=== PATIENT | female | born 1980 | race Caucasian/White ===

== ENCOUNTER 2017-03-23 08:14 | Emergency (ER) | payer OTHER ==
[2017-03-23 08:20] VITALS: BP 123/72
--- NOTE | 2017-03-23 08:43 | UC ---
Throat Pain/Nasal Dereck HPI - HPI Summary HPI Summary: 36 yo female with sore throat and fever x 1 day no n/v/d - History of Current Complaint Chief Complaint: UCRespiratory Stated Complaint: FEVER Time Seen by Provider: 03/23/17 08:23 Hx Obtained From: Patient Hx Last Menstrual Period: 02/24/17 Onset/Duration: Gradual Onset, Lasting Hours Severity: Moderate Pain Intensity: 6 Pain Scale Used: 0-10 Numeric - Epiglottits Risk Factors Epiglottis Risk Factors: Negative - Allergies/Home Medications Allergies/Adverse Reactions: Allergies Allergy/AdvReac Type Severity Reaction Status Date / Time Codeine Allergy Hallucinati Verified 03/23/17 08:20 ons Home Medications: Home Medications Acetaminophen [Acetaminophen Extra Stren] 500 mg PO ONCE 03/23/17 [History Confirmed 03/23/17] PMH/Surg Hx/FS Hx/Imm Hx Previously Healthy: Yes - Surgical History Surgical History: Yes Surgery Procedure, Year, and Place: [facility] - Family History Known Family History: Positive: Hypertension - Social History Alcohol Use: None Substance Use Type: None Smoking Status (MU): Never Smoked Tobacco Review of Systems Constitutional: Fever, Chills Skin: Negative Eyes: Negative ENT: Sore Throat Respiratory: Negative Cardiovascular: Negative Gastrointestinal: Negative Genitourinary: Negative Motor: Negative Neurovascular: Negative Musculoskeletal: Myalgia Neurological: Negative Psychological: Negative Is Patient Immunocompromised?: No All Other Systems Reviewed And Are Negative: Yes Physical Exam Triage Information Reviewed: Yes Appearance: Well-Appearing, No Pain Distress, Well-Nourished Vital Signs: Initial Vital Signs Temp 99.8 F 03/23/17 08:16 Pulse 111 03/23/17 08:16 Resp 18 03/23/17 08:16 BP 123/72 03/23/17 08:16 Pulse Ox 98 03/23/17 08:16 Vital Signs Reviewed: Yes Eyes: Positive: Conjunctiva Clear ENT: Positive: Hearing grossly normal, Pharyngeal erythema Neck: Positive: Supple, Enlarged Nodes @ - ant cervical Respiratory: Positive: Lungs clear, Normal breath sounds, No respiratory distress Cardiovascular: Positive: RRR, No Murmur Musculoskeletal: Positive: ROM Intact, No Edema Neurological: Positive: Alert Psychological Exam: Normal Skin Exam: Normal Diagnostics - Laboratory Diagnostic Studies Completed/Ordered: strep (+) Throat Pain/Nasal Course/Dx - Differential Dx/Diagnosis Provider Diagnoses: strep throat Discharge - Discharge Plan Condition: Stable Disposition: HOME Prescriptions: Amoxicillin PO (*) [Amoxicillin 875 MG (*)] 875 mg PO BID #20 tab Prednisone 60 mg PO DAILY #6 tab Patient Education Materials: Strep Throat (ED) Referrals: Audelia Wei MD [Primary Care Provider] - Additional Instructions: rest fluids tylenol recheck in 2-3 days if not better recheck sooner for worsening symptoms
[2017-03-23] MEDS ORDERED: predniSONE TAB* 20 MG PO ONE (08:44)
== END 2017-03-23 08:52 | disposition home or self-care (01) ==
LOC: UCCORT 08:14
DX: J02.0 Streptococcal pharyngitis (principal); Z88.5 Allergy status to narcotic agent; Z90.49 Acquired absence of other specified parts of digestive tract
CPT/HCPCS: 87651; 99202; G0463; J7512

== ENCOUNTER 2018-12-08 09:25 | Emergency (ER) | payer OTHER ==
--- OUTSIDE RECORDS SUMMARY | 2018-12-08 10:50 | XMS REPORT | Continuity of Care Document ---
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 Care Team Information Kitchen Manager [phone] Practitioner Problems Active Problems Provider Date Single major depressive episode Samantha Colin FNP Onset: 01/19/2012 Acquired hallux valgus Porfirio Reyes FNP Onset: 11/16/2018 Cyst of left ovary Porfirio Reyes FNP Onset: 11/16/2018 Abnormal glucose level Porfirio Reyes FNP Onset: 11/16/2018 Social History Type Date Description Comments Sex Unknown Smokeless Tobacco Never Used Smokeless Tobacco ETOH Use Rarely consumes alcohol Tobacco Use Start: Unknown End: Patient is a former 5 cigs/ day Quit Unknown smoker 2013 Recreational Drug Use Denies Drug Use Smoking Status Reviewed: 12/05/18 Patient is a former 5 cigs/ day Quit smoker 2014 Allergies, Adverse Reactions, Alerts Active Allergies Reaction Severity Comments Date Codeine 01/19/2012 Medications Active Medications SIG Qnty Indications Ordering Date Provider Amitriptyline HCL 1 by mouth every 30tabs R42 Eric, 12/01/2018 25mg night at bedtime Jenshantell, Tablets *in place of 10 mg [employer] tablets, for sleep and headache prevention Lorazepam 1 tablet by mouth 21tabs F43.0 Eric, 12/01/2018 1mg Tablets up to three times Jenkaitlinferleigh, a day for anxiety [employer] MDD#3 Reference #: [id number] Meclizine HCL take one tablet by 60tabs R42 Eric, 05/11/2018 25mg mouth four times a Jenniferleigh, Tablets day as needed for [employer] vertigo Lactaid Fast Act 1 tab by mouth 90tabs R19.7 Bessie, 11/23/2017 three times a day MD Hood 9000Unit Tablets with meals Loestrin 20 (21) 1 tab by mouth 105tabs Z30.011 Eric, 11/09/2017 every daily Jenniferleigh, 1-20mg-mcg Tablets [employer] Loperamide HCL take one capsules 120tabs [facility]19.7 [facility] 11/09/2017 2mg by mouth with each Jenniferleigh, Tablets meal MDD#4 *for [employer] diarrhea History Medications Metronidazole one by mouth 14tabs Porfirio Reyes, 11/23/2018 - 500mg Tablets twice a day x [employer] 12/01/2018 7 days Cephalexin Every 12 14tabs Unknown 10/12/2018 - 500mg Tablets Hours 11/16/2018 Phenazopyridine HCL 3 Times Daily 12tabs Unknown 10/12/2018 - 100mg 11/16/2018 Tablets Cephalexin Every 12 14caps Unknown 08/01/2018 - 500mg Capsules Hours 09/12/2018 Immunizations CPT Code Status Date Vaccine Lot # [id number] Given 09/11/2016 Tdap injection [id number] Vital Signs Date Vital Result Comment 12/05/2018 1:53pm BP Systolic Sitting Left Arm 115 mmHg BP Diastolic Sitting Left Arm 80 mmHg Heart Rate 80 /min Respiratory Rate 16 /min Height 60 inches 5'0" Weight 187.00 lb BMI (Body Mass Index) 36.5 kg/m2 BSA (Body Surface Area) 1.81 m2 [place] body weight in kilograms 45 kg 12/01/2018 11:21am BP Systolic Sitting Left Arm 130 mmHg BP Diastolic Sitting Left Arm 90 mmHg Body Temperature 97.8 F Heart Rate 100 /min Respiratory Rate 18 /min Height 60 inches 5'0" Weight 188.00 lb BMI (Body Mass Index) 36.7 kg/m2 BSA (Body Surface Area) 1.82 m2 [place] body weight in kilograms 45 kg Results Test Date Facility Test Result H/L Range Note Affirm 11/16/[address] [facility] [address] Trichomonas Negative [Negative] 1 Vaginitis Panel [address] vaginalis [place], [place] [id number] [phone] Gardnerella vaginalis POSITIVE Abnormal [Negative] Ambreen species Negative [Negative] 2 Urine Culture 11/16/[address] [facility] [address] Urine Culture URETHRAL GAMAL [address] [place] [address] [phone] Quantity < 10,000 CFU/mL Ua RFX Micro & Culture 11/16/[address] Urine Color YELLOW Yellow II [address] [place] [address] [phone] Urine Clarity CLEAR Clear Urine Glucose - Dipstick NEGATIVE mg/dL Negative Urine Bilirubin - Dipstick NEGATIVE Negative Urine Ketone NEGATIVE mg/dL Negative Urine Specific [facility] 1.025 Normal 1.010-1.030 Urine Blood MODERATE Abnormal Negative Urine PH 5.5 Low 6.5-7.5 Urine Protein - Dipstick NEGATIVE mg/dL Negative Urine Urobilinogen - Dipstick 0.2 E.U./dL Normal 0.2-1.0 Urine Nitrite - Dipstick NEGATIVE Negative Urine Leuk Esterase NEGATIVE Negative Urine RBC 2-5 rbc/hpf 0-2 Urine WBC 0-2 wbc/hpf 0-7 Urine Epithelial Cells MODERATE /lpf None Seen 3 Urine Bacteria VERY FEW None Seen Urine Mucus MODERATE None Seen Comprehensive 11/16/[address] Glucose 85 mg/dL Normal 74-106 Metabolic Panel [address] [place] [address] [phone] BUN 11 mg/dL Normal 7-18 Creatinine 0.7 mg/dL Normal 0.6-1.3 Glom Filtration Rate, Estimate >60 mL/min >60 If >60 mL/min >60 4 BUN/Creat 15.7 ratio Sodium 138 mmol/L Normal 136-145 Potassium 4.2 mmol/L Normal 3.5-5.1 Chloride 105 mmol/L Normal 98-107 Carbon Dioxide 24 mmol/L Normal 21-32 Anion Gap 9 mEq/L Normal 8-16 Calcium 8.8 mg/dL Normal 8.5-10.1 Total Protein 7.8 g/dL Normal 6.4-8.2 Albumin 3.3 g/dL Low 3.4-5.0 Globulin 4.5 g/dL High 1.9-4.3 Alb/Glob 0.7 ratio Bilirubin,Total 0.3 mg/dL Normal 0.2-1.0 Sgot/Ast 17 U/L Normal 15-37 SGPT/Alt 29 U/L Normal 12-78 Alkaline Phosphatase 52 U/L Normal 45-117 Glycohemoglobin 11/16/[address] [facility] [address] Glycohemoglobin 5.7 % Normal 4.2-6.[address] (A1c) [place], [place] [id number] [phone] eAG 117 mg/dL Urine HCG 10/12/2018 [facility] Urine HCG NEGATIVE Negative 6, 7 (Qualitative) [address] (Qualitative) [place], [place] [id number] [phone] Source: URINE, CLEAN CAT <SEE NOTE> 8 Ua RFX Micro & Culture II 10/12/2018 [facility] Urine Color RED Yellow [address] [place] [address] [phone] Urine Clarity TURBID Clear Urine Glucose - Dipstick 100 mg/dL High Negative Urine Bilirubin - Dipstick NEGATIVE Negative Urine Ketone 15 mg/dL High Negative Urine Specific [facility] 1.025 Normal 1.010-1.030 Urine Blood LARGE Abnormal Negative Urine PH 6.5 Normal 6.5-7.5 Urine Protein - Dipstick >=300 mg/dL High Negative Urine Urobilinogen - Dipstick 2.0 E.U./dL High 0.2-1.0 Urine Nitrite - Dipstick POSITIVE Abnormal Negative Urine Leuk Esterase MODERATE Abnormal Negative Urine RBC TNTC rbc/hpf High 0-2 Urine WBC 30-50 wbc/hpf High 0-7 Urine Epithelial Cells FEW /lpf None Seen Urine Bacteria VERY FEW None Seen Source: URINE, CLEAN CAT <SEE NOTE> 9 Culture If 10/12/2018 [facility] Culture If CULTURE TO [address] Indicated Comment [address] Indicated Comment FOLLO <[place] [address] NOTE> [phone] Source: URINE, CLEAN CAT <SEE NOTE> 11 Urine Culture 10/12/2018 [facility] Urine ESCHERICHIA COLI Abnormal [address] Culture [place], [place] [id number] [phone] Quantity > 100,000 CFU/mL 13 Ast-GN67 10/12/2018 [facility] Nitrofurantoin [address] [place] [address] [phone] Trimethoprim/Sulfamethoxazole <=20 Susceptible Ampicillin 8 Susceptible Cefazolin <=4 Susceptible Ampicillin/Sulbactam 4 Susceptible Ciprofloxacin <=0.25 Susceptible Piperacillin/Tazobactam <=4 Susceptible Ceftazidime <=1 Susceptible Ceftriaxone <=1 Susceptible Cefepime <=1 Susceptible Levofloxacin <=0.12 Susceptible Imipenem <=0.25 Susceptible Gentamicin <=1 Susceptible Tobramycin <=1 Susceptible Urine Dipstick 09/12/2018 [facility] Ua Leuko - Negative Ua Nitrite - Negative Ua Urobilinogen .2 0.2 - 1.0 E.U./dL Ua Protein trace Negative Ua PH 6 Low 6.5-7.5 Ua Blood 1+ High Negative Ua Specific [facility] 1.030 1.010-1.030 Ua Ketones - Negative Ua Bilirubin - Negative Ua Glucose - Negative Laboratory test 08/01/2018 [facility] Urine HCG NEGATIVE Negative 14, finding [address] (Qualitative) 15 [place] [address] [phone] Amorphous 08/01/2018 N2N/CCD Import Amorphous Moderate Negative sediment sediment detection in detection in urine sediment urine sediment by by light microscopy Mucus detection 08/01/2018 N2N/CCD Import Mucus detection Small None Seen in urine in urine sediment by sediment by light microsc light microscopy Urine sediment 08/01/2018 N2N/CCD Import Urine sediment 0-2 None Seen hyaline cast hyaline cast count by count by microscopy (n microscopy (number/low power field) Bacteria 08/01/2018 N2N/CCD Import Bacteria Moderate High None Seen detection in detection in urine sediment urine sediment by light micr by light microscopy Epithelial 08/01/2018 N2N/CCD Import Epithelial Very Few None Seen cells detection cells detection in urine in urine sediment by li sediment by light microscopy Urine sediment 08/01/2018 N2N/CCD Import Urine sediment 5-10 0-7 leukocyte count leukocyte count by microscopy by microscopy (numb (number/high power field) Automated urine 08/01/2018 N2N/CCD Import Automated urine 5-10 High 0-2 sediment sediment erythrocyte erythrocyte count by micr count by microscopy (number/high power field) Urine leukocyte 08/01/2018 N2N/CCD Import Urine leukocyte Negative Negative esterase esterase detection by detection by automated te automated test strip Urine nitrite 08/01/2018 N2N/CCD Import Urine nitrite Negative Negative detection by detection by automated test automated test strip strip Urine 08/01/2018 N2N/CCD Import Urine 0.2 0.2-1.0 urobilinogen urobilinogen measurement measurement (units/volume) (units/volume) by t by test strip Urine protein 08/01/2018 N2N/CCD Import Urine protein Negative Negative measurement by measurement by automated test automated test strip strip (mass/volume) Urine pH 08/01/2018 N2N/CCD Import Urine pH 5.5 Low 6.5-7.5 measurement by measurement by automated test automated test strip strip Urine 08/01/2018 N2N/CCD Import Urine Moderate High Negative hemoglobin hemoglobin detection by detection by automated test automated test strip strip Specific 08/01/2018 N2N/CCD Import Specific >=1.030 1.010-1.0 gravity of gravity of 30 Urine by Urine by Automated test Automated test strip strip Urine ketones 08/01/2018 N2N/CCD Import Urine ketones Negative Negative measurement by measurement by automated test automated test strip strip (mass/volume) Urine total 08/01/2018 N2N/CCD Import Urine total Negative Negative bilirubin bilirubin detection by detection by automated test automated test strip Urine glucose 08/01/2018 N2N/CCD Import Urine glucose Negative Negative measurement by measurement by automated test automated test strip strip (mass/volume) Urine 08/01/2018 N2N/CCD Import Urine Clear Clear appearance appearance determination determination Urine color 08/01/2018 N2N/CCD Import Urine color Yellow Yellow determination determination Urine Culture 08/01/2018 [facility] Urine Culture URETHRAL [address] [place] [address] [phone] Quantity < 10,000 CFU/mL Ua RFX Micro & Culture 08/01/2018 [facility] Urine Color YELLOW Yellow II [address] [place] [address] [phone] Urine Clarity CLEAR Clear Urine Glucose - Dipstick NEGATIVE mg/dL Negative Urine Bilirubin - Dipstick NEGATIVE Negative Urine Ketone NEGATIVE mg/dL Negative Urine Specific [facility] >=1.030 Normal 1.010-1.030 Urine Blood MODERATE Abnormal Negative Urine PH 5.5 Low 6.5-7.5 Urine Protein - Dipstick NEGATIVE mg/dL Negative Urine Urobilinogen - Dipstick 0.2 E.U./dL Normal 0.2-1.0 Urine Nitrite - Dipstick NEGATIVE Negative Urine Leuk Esterase NEGATIVE Negative Urine RBC 5-10 rbc/hpf High 0-2 Urine WBC 5-10 wbc/hpf 0-7 Urine Epithelial Cells VERY FEW /lpf None Seen Urine Bacteria MODERATE Abnormal None Seen Urine Hyaline Cast 0-2 #/lpf None Seen Urine Mucus SMALL None Seen Urine Amorph Sediment MODERATE Negative Source: URINE, CLEAN CAT <SEE NOTE> 16 1 R35.0 R73.9 2 Method: BD Affirm VPIII DNA Probe Assay 3 POSSIBLE UROGENITAL CONTAMINATION. 4 Note: Persistent reduction for 3 months or more in an eGFR <60 mL/min/1.73 m2 defines CKD. Patients with eGFR values >/=60 mL/min/1.73 m2 may also have CKD if evidence of persistent proteinuria is present. The original MDRD equation for estimated GFR is not valid for patients less than 18 years of age. Additional information may be found at www.kdoqi.org. 5 Elevated levels of HbA1c suggest the need for more aggressive treatment of glycemia. The [place] [employer] recommends that a primary goal of therapy should be a HbA1c of <7% and that physicians should re-evaluate the treatment regimen in patients with HbA1c values consistently >8%. 6 POSS UTI, BLOOD IN URINE, PEES OFTEN 7 FIRST MORNING SPECIMENS GENERALLY CONTAIN THE HIGHEST CONCENTRATION OF HCG AND ARE RECOMMENDED FOR EARLY DETECTION OF . Method: Quidel QuickVue One-Step Immunoassay 8 URINE, CLEAN CATCH 9 URINE, CLEAN CATCH 10 CULTURE TO FOLLOW 11 URINE, CLEAN CATCH 12 ESCHERICHIA COLI 13 > 100,000 CFU/mL 14 LT SIDE LOWER BACK PAIN, ?KIDNEY RELATED 15 FIRST MORNING SPECIMENS GENERALLY CONTAIN THE HIGHEST CONCENTRATION OF HCG AND ARE RECOMMENDED FOR EARLY DETECTION OF . Method: Quidel QuickVue One-Step Immunoassay 16 URINE, CLEAN CATCH Procedures Description No Information Available Medical Devices Description No Information Available Encounters Type Date Location Provider Dx Diagnosis Office Visit 12/05/2018 Family Medicine Eric, F43.0 Acute stress 2:15p Kevin Monroy, reaction [employer] Office Visit 11/16/2018 Family Jeffery Reyes, Z00.01 Encounter for 9:30a Kevin Monroy, general adult [employer] medical exam w abnormal findings M20.12 Hallux valgus (acquired), left foot R35.0 Frequency of micturition N83.292 Other ovarian cyst, left side R73.9 Hyperglycemia, unspecified E66.9 Obesity, unspecified Office Visit 09/12/2018 Family Eric, N83.202 Unspecified 8:45a [facility] [place] ovarian cyst, RD left side Assessments Date Code Description Provider 12/05/2018 F43.0 Acute stress reaction Nina ReyesmariannedivineDEEPA 12/01/2018 F43.0 Acute stress reaction Nina ReyesmariannedivineDEEPA 11/16/2018 Z00.01 Encounter for general adult medical Porfirio Reyes FNP examination with abnormal findings 11/16/2018 M20.12 Hallux valgus (acquired), left foot Eric DEEPA Monroy 11/16/2018 R35.0 Frequency of micturition Sarah ReyesparthdivineDEEPA 11/16/2018 N83.292 Other ovarian cyst, left side Anderschris DEEPA Monroy 11/16/2018 R73.9 Hyperglycemia, unspecified Eric DEEPA Monroy 11/16/2018 E66.9 Obesity, unspecified Nina ReyesmariannedivineDEEPA 09/12/2018 N83.202 Unspecified ovarian cyst, left side Eric DEEPA Monroy Plan of Treatment 12/01/2018 - Nina ReyesmariannedivineDEEPAF43.0 Acute stress reactionNew Medication: Lorazepam 1 mg - 1 tablet by mouth up to three times a day for anxiety MDD#3 Reference #: [id number]:increase Amitriptyline to 25 mg at night (may double up on current dose) If increased dose of amitripyline isn't working, may use Lorazepam an hour before bed. It this isn't effective, would consider switching to Seroquel (Quetiapine) or trazodone Lorazapam for daytime Sx short term only (discussed addiction potential, diversion and daytime drowsiness as concerns). May cut pill in half if you feel too drowsy. Understanding that as you sleep better, you may need it less and we will discuss switchingto either SSRI/SNRI, buspirone or other at follow up visit.Follow up:MOn/Tues recheck anxiety 15 min Functional Status Description No Information Available Mental Status Description No Information Available Referrals Refer to Reason for Referral Status Appt Date Jessica Briceno MD LT sided pelvic pain since early August - Sent Recent MRI shows 4.4 cm left dermoid cyst. [address] [facility] [address] [place] [address] [phone] Mika Weinstein LT foot pain Scheduled 12/05/2018 [address] [place] [address] [phone]
--- OUTSIDE RECORDS SUMMARY | 2018-12-08 10:50 | XMS REPORT | Continuity of Care Document ---
:1980 External Reference #:[id number] Author Name Porfirio Reyes FNP Address [address] [place] [address] Care Team Providers Name Role Phone Porfirio Reyes NP Care Team Information Director Nursing Service Unavailable Porfirio Reyes NP Primary Care Physician Unavailable Payers Date Identification Numbers Payment Provider Subscriber Policy Number: [id number] [employer] Wilma Roldan PayID: [id number] [address] [place] [address] Onset: 2018 Policy Number: [id number] Progressive Wilma Barrerajai PayID: [id number] [address] [place] [address] Problems Active Problems Provider Date Single major depressive episode Samantha Colin FNP Onset: 01/19/2012 Abnormal glucose level Porfirio Reyes FNP Onset: 11/16/2018 Cyst of left ovary Porfirio Reyes FNP Onset: 11/16/2018 Acquired hallux valgus Porfirio Reyes FNP Onset: 11/16/2018 Family History Date Family Member(s) Observation Comments General Diabetes Mellitus Type 2 General Hypercholesterolemia General Hypertension General Non Contributory Father Hypertension Father Diabetes Mother Hypertension Mother Diabetes Paternal Grandfather due to Unknown Causes () Paternal Grandmother Unknown Maternal Grandfather due to Diabetes () - complications; ETOH + smoker Maternal Grandmother Diabetes Maternal Grandmother due to Kidney Disease () Social History Type Date Description Comments Sex Unknown Marital Status Lives With Home Environment Lives With spouse and 2 children Diet Patient follows no dietary restrictions 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 Status Currently Working Smokeless Tobacco Never Used Smokeless Tobacco ETOH Use Rarely consumes alcohol Tobacco Use Start: Unknown End: Patient is a former 5 cigs/ day Quit Unknown smoker 2013 Recreational Drug Use Denies Drug Use Smoking Status Reviewed: 11/16/18 Patient is a former 5 cigs/ day Quit smoker 2013 Allergies, Adverse Reactions, Alerts Active Allergies Reaction Severity Comments Date Codeine 01/19/2012 Medications Active Medications SIG Qnty Indications Ordering Date Provider Amitriptyline HCL 1 tablet 1 hours 30tabs R42 [facility], 05/11/2018 10mg prior to bedtime Jenniferadelina, Tablets [employer] Meclizine HCL take one tablet 60tabs R42 [place], 05/11/2018 25mg by mouth four Jenkaitlinferadelina, Tablets times a day as F[employer] STERIL[employer]ER needed for vertigo Lactaid Fast Act 1 tab by mouth 90tabs R19.7 [place], 11/23/2017 9000Unit three times a MD Tablets day with meals Loestrin 20 (21) 1 tab by mouth 105tabs Z30.011 [place], 11/09/2017 every daily Jenniferadelina, 1-20mg-mcg Tablets [employer]IL[employer] Loperamide HCL take one 120tabs R19.7 [place], 11/09/2017 2mg capsules by Jenshantell, Tablets mouth with each [employer] meal MDD#4 *for diarrhea History Medications Cephalexin Every 12 Hours 14tabs Unknown 10/12/2018 - 500mg Tablets 11/16/2018 Phenazopyridine HCL 3 Times Daily 12tabs Unknown 10/12/2018 - 100mg 11/16/2018 Tablets Cephalexin Every 12 Hours 14caps Unknown 08/01/2018 - 500mg Capsules 09/12/2018 Cervical Collar/Soft use one hour 1units M54.2 [place], 03/14/2018 - Foam/Average/[place] on and one off Jenniferleidivine, 11/16/2018 - do not sleep [employer] STERIL[employer]ER Misc in collar No Active Medications Unknown 11/09/2017 - 11/09/2017 Metronidazole 500 mg by 14tabs Audelia Wei, 09/15/2016 - 500mg Tablets mouth q12 x 7 M.D. 11/09/2017 days Loestrin 05/22 (21) 1 tab by mouth 105tabs Z30.011 Audelia Wei, 03/17/2016 - every daily M.D. 11/09/2017 1-20mg-mcg Tablets Diazepam 1 tab by mouth 1tamarcelina Villagomez, 06/05/2014 - 5mg Tablets prior to MD Nayely 03/17/2016 dental appointment. [facility], 02/28/2013 - 68mg Implant MD Claudia 05/06/2016 Cyclobenzaprine HCL take 1 tablet Unknown - 10mg by mouth every 09/12/2018 Tablets 6 hours if needed for muscle spasm Ibu take 1 tablet Unknown - 600mg Tablets by mouth three 09/12/2018 times a day if needed for pain Immunizations CPT Code Status Date Vaccine Lot # [id number] Given 09/11/2016 Tdap injection [id number] Vital Signs Date Vital Result Comment 11/16/2018 9:21am BP Systolic Sitting Right Arm 120 mmHg BP Diastolic Sitting Right Arm 82 mmHg Heart Rate 84 /min Respiratory Rate 17 /min Height 60 inches 5'0" Weight 190.00 lb BMI (Body Mass Index) 37.1 kg/m2 BSA (Body Surface Area) 1.83 m2 Juda body weight in kilograms 45 kg O2 % BldC Oximetry 98 % 09/12/2018 8:42am BP Systolic Sitting Left Arm 116 mmHg BP Diastolic Sitting Left Arm 74 mmHg Heart Rate 80 /min Respiratory Rate 18 /min Height 60 inches 5'0" Weight 190.00 lb BMI (Body Mass Index) 37.1 kg/m2 BSA (Body Surface Area) 1.83 m2 Juda body weight in kilograms 45 kg 05/25/2018 3:03pm BP Systolic Sitting Left Arm 114 mmHg BP Diastolic Sitting Left Arm 72 mmHg Heart Rate 78 /min Respiratory Rate 18 /min Height 60 inches 5'0" Weight 187.00 lb BMI (Body Mass Index) 36.5 kg/m2 BSA (Body Surface Area) 1.81 m2 Juda body weight in kilograms 45 kg 05/11/2018 7:39am BP Systolic Sitting Left Arm 112 mmHg BP Diastolic Sitting Left Arm 76 mmHg Body Temperature 97.1 F Heart Rate 93 /min Weight 185.12 lb O2 % BldC Oximetry 97 % 03/29/2018 4:02pm BP Systolic 118 mmHg BP Diastolic 80 mmHg Body Temperature 98.6 F R Ear Heart Rate 95 /min Respiratory Rate 98 /min Height 60 inches 5'0" Weight 184.00 lb BMI (Body Mass Index) 35.9 kg/m2 BSA (Body Surface Area) 1.80 m2 Juda body weight in kilograms 45 kg 03/14/2018 2:49pm BP Systolic Sitting Left Arm 110 mmHg BP Diastolic Sitting Left Arm 72 mmHg Heart Rate 80 /min Respiratory Rate 18 /min Height 60 inches 5'0" Weight 184.00 lb BMI (Body Mass Index) 35.9 kg/m2 BSA (Body Surface Area) 1.80 m2 Juda body weight in kilograms 45 kg 11/23/2017 10:19am BP Systolic Sitting Resting Right Arm 120 mmHg BP Diastolic Sitting Resting Right Arm 90 mmHg Heart Rate 70 /min Respiratory Rate 18 /min Height 60 inches 5'0" Weight 184.00 lb BMI (Body Mass Index) 35.9 kg/m2 BSA (Body Surface Area) 1.80 m2 Juda body weight in kilograms 45 kg O2 % BldC Oximetry 98 % 11/09/2017 2:11pm BP Systolic Sitting Left Arm 118 mmHg BP Diastolic Sitting Left Arm 74 mmHg Body Temperature 98.0 F Heart Rate 64 /min Height 60 inches 5'0" Weight 185.25 lb BMI (Body Mass Index) 36.2 kg/m2 BSA (Body Surface Area) 1.81 m2 Juda body weight in kilograms 45 kg Last Menstrual Period [id number] 09/11/2016 8:50am BP Systolic Sitting Left Arm 118 mmHg BP Diastolic Sitting Left Arm 66 mmHg Body Temperature 98.1 F Height 60 inches 5'0" Weight 180.38 lb BMI (Body Mass Index) 35.2 kg/m2 BSA (Body Surface Area) 1.79 m2 Juda body weight in kilograms 45 kg Last Menstrual Period [id number] 03/17/2016 1:40pm BP Systolic Sitting Left Arm 106 mmHg BP Diastolic Sitting Left Arm 70 mmHg Height 60 inches 5'0" Weight 178.50 lb BMI (Body Mass Index) 34.9 kg/m2 BSA (Body Surface Area) 1.78 m2 Juda body weight in kilograms 45 kg 02/22/2014 2:19pm BP Systolic 122 mmHg BP Diastolic 70 mmHg Height 60 inches 5'0" Weight 181.00 lb 11/29/2013 1:00pm BP Systolic 126 mmHg BP Diastolic 74 mmHg Height 60 inches 5'0" Weight 177.00 lb 06/09/2013 11:30am BP Systolic 120 mmHg BP Diastolic 84 mmHg Body Temperature 98.1 F Heart Rate 80 /min Height 60 inches 5'0" Weight 172.00 lb 02/28/2013 10:47am BP Systolic 124 mmHg BP Diastolic 70 mmHg Height 60 inches 5'0" Weight 171.00 lb 01/19/2012 2:10pm BP Systolic 112 mmHg BP Diastolic 86 mmHg Height 60 inches 5'0" Weight 170.00 lb Results Test Date Facility Test Result H/L Range Note Urine HCG 10/12/2018 [facility] Urine HCG NEGATIVE Negative 1, 2 (Qualitative) [address] (Qualitative) [place] [address] [phone] Source: URINE, CLEAN CAT <SEE NOTE> 3 Ua RFX Micro & Culture II 10/12/2018 [facility] Urine Color RED Yellow [address] [place] [address] [phone] Urine Clarity TURBID Clear Urine Glucose - Dipstick 100 mg/dL High Negative Urine Bilirubin - Dipstick NEGATIVE Negative Urine Ketone 15 mg/dL High Negative Urine Specific [place] 1.025 Normal 1.010-1.030 Urine Blood LARGE Abnormal [...] Seen Source: URINE, CLEAN CAT <SEE NOTE> 4 Culture If 10/12/2018 [facility] Culture If CULTURE TO 5 Indicated Comment [address] Indicated Comment FOLLO <[place] [address] NOTE> [phone] Source: URINE, CLEAN CAT <SEE NOTE> 6 Urine Culture 10/12/2018 [facility] Urine Culture ESCHERICHIA COLI Abnormal [address] [place] [address] [phone] Quantity > 100,000 CFU/mL 8 [id number] 10/12/2018 [facility] Nitrofurantoin 32 Susceptible [address] [place] [address] [phone] Trimethoprim/Sulfamethoxazole <=20 Susceptible Ampicillin 8 Susceptible Cefazolin [...] Ua Blood 1+ High Negative Ua Specific [place] 1.030 1.010-1.030 Ua Ketones - Negative Ua Bilirubin - Negative Ua Glucose - Negative Ua RFX Micro & Culture 08/01/2018 [facility] Urine Color YELLOW Yellow 9 II [address] [place] [address] [phone] Urine Clarity CLEAR Clear Urine Glucose - Dipstick NEGATIVE mg/dL Negative Urine Bilirubin - Dipstick NEGATIVE Negative Urine Ketone NEGATIVE mg/dL Negative Urine Specific [place] >=1.030 Normal 1.010-1.030 Urine Blood MODERATE Abnormal [...] Negative Source: URINE, CLEAN CAT <SEE NOTE> 10 Laboratory 08/01/2018 [facility] Urine HCG NEGATIVE Negative 11 test finding [address] [facility] (Qualitative) [place] [address] [phone] Amorphous 08/01/2018 N2N/CCD Import Amorphous Moderate Negative sediment sediment detection in detection in urine urine sediment sediment by by light microscopy Mucus 08/01/2018 N2N/CCD Import Mucus detection Small None Seen detection in in urine urine sediment by sediment by light microscopy light microsc Urine 08/01/2018 N2N/CCD Import Urine sediment 0-2 None Seen sediment hyaline cast hyaline cast count by count by microscopy microscopy (n (number/low power field) Bacteria 08/01/2018 N2N/CCD Import Bacteria Moderate High None Seen detection in detection in urine urine sediment sediment by by light light micr microscopy Urine Culture 08/01/2018 [facility] Urine Culture URETHRAL [address] [place] [address] [phone] Quantity < 10,000 CFU/mL Urine color 08/01/2018 N2N/CCD Import Urine color Yellow Yellow determination determination Urine appearance 08/01/2018 N2N/CCD Import Urine appearance Clear Clear determination determination Urine glucose 08/01/2018 N2N/CCD Import Urine glucose Negative Negative measurement by measurement by automated test automated test strip strip (mass/volume) Urine total 08/01/2018 N2N/CCD Import Urine total Negative Negative bilirubin bilirubin detection by detection by automated test automated test strip Urine ketones 08/01/2018 N2N/CCD Import Urine ketones Negative Negative measurement by measurement by automated test automated test strip strip (mass/volume) Specific gravity 08/01/2018 N2N/CCD Import Specific gravity >=1.030 1.010-1.030 of Urine by of Urine by Automated test Automated test strip strip Urine hemoglobin 08/01/2018 N2N/CCD Import Urine hemoglobin Moderate High Negative detection by detection by automated test automated test strip strip Urine pH 08/01/2018 N2N/CCD Import Urine pH 5.5 Low 6.5-7.5 measurement by measurement by automated test automated test strip strip Urine protein 08/01/2018 N2N/CCD Import Urine protein Negative Negative measurement by measurement by automated test automated test strip strip (mass/volume) Epithelial cells 08/01/2018 N2N/CCD Import Epithelial cells Very Few None Seen detection in detection in urine sediment by urine sediment li by light microscopy Urine sediment 08/01/2018 N2N/CCD Import Urine sediment 5-10 0-7 leukocyte count leukocyte count by microscopy by microscopy (numb (number/high power field) Automated urine 08/01/2018 N2N/CCD Import Automated urine 5-10 High 0-2 sediment sediment erythrocyte count erythrocyte by micr count by microscopy (number/high power field) Urine leukocyte 08/01/2018 N2N/CCD Import Urine leukocyte Negative Negative esterase esterase detection by detection by automated te automated test strip Urine nitrite 08/01/2018 N2N/CCD Import Urine nitrite Negative Negative detection by detection by automated test automated test strip strip Urine 08/01/2018 N2N/CCD Import Urine 0.2 0.2-1.0 urobilinogen urobilinogen measurement measurement (units/volume) by (units/volume) t by test strip Comprehensive 11/23/2017 [facility] Glucose 87 mg/dL Normal 74-106 12 Metabolic Panel [address] [place] [address] [phone] BUN 11 mg/dL Normal 7-18 Creatinine 0.8 mg/dL Normal 0.6-1.3 Glom Filtration Rate, Estimate >60 mL/min >60 If >60 mL/min >60 13 BUN/Creat 13.7 ratio Sodium 139 mmol/L Normal 136-145 Potassium 4.1 mmol/L Normal 3.5-5.1 Chloride 108 mmol/L High 98-107 Carbon Dioxide 23 mmol/L Normal 21-32 Anion Gap 8 mEq/L Normal 8-16 Calcium 8.9 mg/dL Normal 8.5-10.1 Total Protein 8.5 g/dL High 6.4-8.2 Albumin 3.8 g/dL Normal 3.4-5.0 Globulin 4.7 g/dL High 1.9-4.3 Alb/Glob 0.8 ratio Bilirubin,Total 0.4 mg/dL Normal 0.2-1.0 Sgot/Ast 27 U/L Normal 15-37 SGPT/Alt 56 U/L Normal 12-78 Alkaline Phosphatase 57 U/L Normal 45-117 CBS W/Automated 11/23/2017 [facility] White Blood 6.5 K/uL Normal 3.1-10.[address] [place] [address] [phone] Red Blood Count 5.15 M/uL Normal 3.90-5.40 Hemoglobin 14.0 gm/dL Normal 11.6-15.8 Hematocrit 41.1 % Normal 36.0-46.1 Mean Cell Volume 79.8 fl Low 80.9-99.0 Mean Corpuscular HGB 27.2 pg Normal 25.9-32.7 Mean Corpuscular HGB Conc 34.1 g/dL Normal 30.8-34.3 Platelet Count 349 K/uL Normal 155-360 Red Cell Distri Width SD 38.9 fl Normal 3-47 Red Cell Distri Width %CV 13.7 % Normal 11.7-14.4 Mean Platelet Volume 8.9 fL Normal 8.9-12.4 Neut% 64.3 % Normal 40.4-72.8 Lymph % 26.9 % Normal 20.0-42.0 Pickett % 6.3 % Normal 4.3-13.2 Eo% 2.0 % Normal 0.0-6.6 Bas% 0.5 % Normal 0.0-1.1 Neut# 4.18 K/uL Normal 1.8-7.0 Lymph # 1.75 K/uL Normal 1.0-4.0 [place]ett # 0.41 K/uL Normal 0.3-0.9 Eos # 0.13 K/uL Normal 0.0-0.5 Baso # 0.03 K/uL Normal 0.0-0.1 Laboratory test finding 11/23/2017 [facility] Lipase 110 U/L Normal 56-289 [address] [place], [place] [address] [phone] Amylase 60 U/L Normal 25-115 Laboratory test 11/23/2017 [facility] Sedimentation Rate 48 mm/hr High 0-20 14 finding [address] [place], [place] [id number] [phone] C-Reactive Protein,Quant 8.0 mg/L High <3.0 Laboratory test 11/09/2017 [facility] Inhouse Urine Test neg finding Urine Dipstick 11/09/2017 [facility] Inhouse Ua Color yellow Yellow Ua Clarity clear Clear Ua Leuko neg Negative Ua Nitrite neg Negative Ua Urobilinogen 0.2 0.2 - 1.0 E.U./dL Ua Protein neg Negative Ua PH 6.0 Low 6.5-7.5 Ua Blood neg Negative Ua Specific [place] 1.010 1.010-1.030 Ua Ketones neg Negative Ua Bilirubin neg Negative Ua Glucose neg Negative Ua RFX Micro & Culture 08/17/2017 [facility] Urine Color YELLOW Yellow 15 II [address] [place] [address] [phone] Urine Clarity CLEAR Clear Urine Glucose - Dipstick NEGATIVE mg/dL Negative Urine Bilirubin - Dipstick NEGATIVE Negative Urine Ketone TRACE mg/dL High Negative Urine Specific [place] <=1.005 Low 1.010-1.030 Urine Blood TRACE Negative Urine PH 6.0 Low 6.5-7.5 Urine Protein - Dipstick NEGATIVE mg/dL Negative Urine Urobilinogen - Dipstick 0.2 E.U./dL Normal 0.2-1.0 Urine Nitrite - Dipstick NEGATIVE Negative Urine Leuk Esterase NEGATIVE Negative Source: URINE, CLEAN CAT <SEE NOTE> 16 CBS W/Automated 08/17/2017 [facility] White Blood 7.7 K/uL Normal 3.1-10.[address] [place] [address] [phone] Red Blood Count 5.82 M/uL High 3.90-5.40 Hemoglobin 15.8 gm/dL Normal 11.6-15.8 Hematocrit 46.2 % High 36.0-46.1 Mean Cell Volume 79.4 fl Low 80.9-99.0 Mean Corpuscular HGB 27.1 pg Normal 25.9-32.7 Mean Corpuscular HGB Conc 34.2 g/dL Normal 30.8-34.3 Platelet Count 321 K/uL Normal 155-360 Red Cell Distri Width SD 37.5 fl Normal 3-47 Red Cell Distri Width %CV 13.1 % Normal 11.7-14.4 Mean Platelet Volume 8.8 fL Low 8.9-12.4 Neut% 72.6 % Normal 40.4-72.8 Lymph % 16.6 % Low 20.0-42.0 Pickett % 9.2 % Normal 4.3-13.2 Eo% 1.3 % Normal 0.0-6.6 Bas% 0.3 % Normal 0.0-1.1 Neut# 5.61 K/uL Normal 1.8-7.0 Lymph # 1.28 K/uL Normal 1.0-4.0 Pickett # 0.71 K/uL Normal 0.3-0.9 Eos # 0.10 K/uL Normal 0.0-0.5 Baso # 0.02 K/uL Normal 0.0-0.1 Glycohemoglobin 09/11/2016 [facility] Glycohemoglobin 5.8 % Normal 4.2-6.3 17, A1c [address] (A1c) [address] [place], [place] [id number] [phone] eAG 120 mg/dL LDL Cholesterol Profile 09/11/2016 [facility] Cholesterol 184 mg/dL <[address] [place], [place] [id number] [phone] Triglycerides 140 mg/dL <150 20 HDL Cholesterol 35 mg/dL Low >40 21 LDL-Cholesterol 121 mg/dL < 100 22 Reflex add FT3? Y Reflex add FT4? Y Comprehensive 09/11/2016 [facility] Glucose 87 mg/dL Normal 74-106 Metabolic Panel [address] [place] [address] [phone] BUN 13 mg/dL Normal 7-18 Creatinine 0.7 mg/dL Normal 0.6-1.3 Glom Filtration Rate, Estimate >60 mL/min >60 If >60 mL/min >60 23 BUN/Creat 18.5 ratio Sodium 140 mmol/L Normal 136-145 Potassium 4.8 mmol/L Normal 3.5-5.1 Chloride 108 mmol/L High 98-107 Carbon Dioxide 27 mmol/L Normal 21-32 Anion Gap 5 mEq/L Low 8-16 Calcium 8.5 mg/dL Normal 8.5-10.1 Total Protein 7.8 g/dL Normal 6.4-8.2 Albumin 3.3 g/dL Low 3.4-5.0 Globulin 4.5 g/dL High 1.9-4.3 Alb/Glob 0.7 ratio Bilirubin,Total 0.3 mg/dL Normal 0.2-1.0 Sgot/Ast 15 U/L Normal 15-37 SGPT/Alt 30 U/L Normal 12-78 Alkaline Phosphatase 51 U/L Normal 45-117 Reflex add FT3? Y Reflex add FT4? Y TSH Reflex 09/11/2016 [facility] Thyroid Stim 1.39 uIU/mL Normal 0.30-4.20 FT4 And/Or [address] Hormone FT3 [place] [address] [phone] Reflex add FT3? Y Reflex add FT4? Y Affirm 09/11/2016 [facility] Trichomonas Negative [Negative] Vaginitis [address] [place] [address] [phone] Gardnerella vaginalis POSITIVE High [Negative] Ambreen species Negative [Negative] 24 Laboratory test 02/22/2014 N2N/CCD Import ThinPrep Pap: See Note 25 finding Cervix/Endocx Laboratory test 02/22/2014 N2N/CCD Import Chlamydia Negative Negative 26 finding Trachomatis, [place] Laboratory test 02/04/2014 N2N/CCD Import Throat Strep See Note 27 finding Screen Vitamin B12 And 11/29/2013 N2N/CCD Import Folic Acid 18.1 ng/mL High 6.0- 15.4 Folate Vitamin B12 290 pg/mL 200-900 28 Comprehensive Metabolic Panel 11/29/2013 N2N/CCD Import Alb/Glob 0.9 ratio Albumin 3.8 g/dL 3.5-5.0 Alkaline Phosphatase 63 U/L 50-136 Anion Gap 11 mEq/L 8-16 BUN 10 mg/dL 5-23 BUN/Creat 11.1 ratio Bilirubin,Total 0.4 mg/dL 0.2-1.2 Calcium 9.0 mg/dL 8.5-10.1 Carbon Dioxide 26 mEq/L 18-29 Chloride 106 mmol/L 98-107 Creatinine 0.9 mg/dL 0.5-1.4 Globulin 4.3 g/dL 1.9-4.3 Glom Filtration Rate, Estimate >60 mL/min >60 Glucose 88 mg/dL 76-115 If >60 mL/min >60 29 Potassium 4.1 mmol/L 3.5-5.1 SGPT/Alt 32 U/L 30-65 Sgot/Ast 15 U/L Low 16-40 Sodium 139 mmol/L 136-145 Total Protein 8.1 g/dL High 6.3-8.0 CBC 11/29/2013 N2N/CCD Import Hematocrit 43.5 % 36.0-46.1 Hemoglobin 14.5 gm/dL 11.6-15.8 Mean Cell Volume 81.3 fl 80.9-99.0 Mean Corpuscular HGB 27.1 pg 25.9-32.7 Mean Corpuscular HGB Conc 33.3 g/dL 30.8-34.3 Mean Platelet Volume 9.3 fL 8.9-12.4 Platelet Count 319 K/uL 155-360 Red Blood Count 5.35 M/uL 3.90-5.40 Red Cell Distri Width %CV 13.7 % 11.7-14.4 White Blood Count 7.4 K/uL 3.1-10.7 Laboratory test finding 11/29/2013 N2N/CCD Import Free T4 1.00 ng/dL 0.71-1.85 Thyroid Stim Hormone 1.01 uIU/mL 0.49-4.67 Laboratory test 02/20/2013 N2N/CCD Import HPV High Risk Negative Negative 30 finding ThinPrep Pap: Cervix/Endocx See Note 31 Chlamydia/GC [place] 02/20/2013 N2N/CCD Import Chlamydia Indeterminate Negative 32 Trachomatis, [place] Neisseria Gonorrhoeae, [place] Negative Negative Please note: See Note 33 1 POSS UTI, BLOOD IN URINE, PEES OFTEN 2 FIRST MORNING SPECIMENS GENERALLY CONTAIN THE HIGHEST CONCENTRATION OF HCG AND ARE RECOMMENDED FOR EARLY DETECTION OF . Method: Quidel QuickVue One-Step Immunoassay 3 URINE, CLEAN CATCH 4 URINE, CLEAN CATCH 5 CULTURE TO FOLLOW 6 URINE, CLEAN CATCH 7 ESCHERICHIA COLI 8 > 100,000 CFU/mL 9 LT SIDE LOWER BACK PAIN, ?KIDNEY RELATED 10 URINE, CLEAN CATCH 11 FIRST MORNING SPECIMENS GENERALLY CONTAIN THE HIGHEST CONCENTRATION OF HCG AND ARE RECOMMENDED FOR EARLY DETECTION OF . Method: [place]idel QuickVue One-Step Immunoassay 12 R19.7 13 Note: Persistent reduction for 3 months or more in an eGFR <60 mL/min/1.73 m2 defines CKD. Patients with eGFR values >/=60 mL/min/1.73 m2 may also have CKD if evidence of persistent proteinuria is present. The original MDRD equation for estimated GFR is not valid for patients less than 18 years of age. Additional information may be found at www.kdoqi.org. 14 Method: Sediplast Modified Westergren 15 VOMITING X3DAYS 16 URINE, CLEAN CATCH 17 Z12.4 Z13.1 Z13.6 N89.8 18 Elevated levels of HbA1c suggest the need for more aggressive treatment of glycemia. The [place] [employer] recommends that a primary goal of therapy should be a HbA1c of <7% and that physicians should re-evaluate the treatment regimen in patients with HbA1c values consistently >8%. 19 Reference Guidelines*: Desirable: ........... < 200 mg/dL Borderline High: ..... 200-239 mg/dL High: ................ >=240 mg/dL * The National Cholesterol Education Program (NCEP) 20 Reference Guidelines*: Normal: ............. < 150 mg/dL Borderline High: .... 150-199 mg/dL High: ............... 200-499 mg/dL Very High: .......... > 500 mg/dL * Source: National Cholesterol Education Program (NCEP) 21 Reference Guidelines*: Low HDL: ..... < 40 mg/dL Normal: ..... 40-60 mg/dL Desirable: ... > 60 mg/dL *The National Cholesterol Education Program(NCEP) 22 Reference Guidelines*: Optimal:........... <100 mg/dL Near Optimal....... 100-129 mg/dL Borderline High.... 130-159 mg/dL High............... 160-189 mg/dL Very High.......... >=190 mg/dL * Source: National Cholesterol Education Program (NCEP) 23 Note: Persistent reduction for 3 months or more in an eGFR <60 mL/min/1.73 m2 defines CKD. Patients with eGFR values >/=60 mL/min/1.73 m2 may also have CKD if evidence of persistent proteinuria is present. The original MDRD equation for estimated GFR is not valid for patients less than 18 years of age. Additional information may be found at www.kdoqi.org. 24 Method: BD Affirm VPIII DNA Probe Assay 25 CYTOLOGY SCREENER - CORRUGATED SHEET MATERIAL SHEETER @ 06/13 Screened by: Iram Kellogg [facility](ASCP) PAP: FINAL REPORT SPECIMEN ADEQUACY: SPECIMEN SATISFACTORY FOR INTERPRETATION ADEQUATE ENDOCERVICAL/TRANSFORMATION ZONE NOTED INTERPRETATION: NEGATIVE FOR INTRAEPITHELIAL LESION OR MALIGNANCY COMMENT: SHIFT IN GAMAL SUGGESTIVE OF BACTERIAL VAGINOSIS BENIGN CELLULAR CHANGES ASSOCIATED WITH INFLAMMATION THINPREP PREPARED PAP SLIDE # Prepared in the Cytology laboratory from the ThinPrep sample is 1 ThinPrep smear. PAP ACCESSI QUESTIONNAIRE 05/12 PERTINENT CLINICAL HISTORY FOR PAP (CORRUGATED SHEET MATERIAL SHEETER) CYTOLOGY (Check all that apply): ? N Post ? N Menopause? N LMP date: Last Pap: at [facility]? Y Abnormal Pap? If Yes, date: Post Hysterectomy ? Is cervix present? Y If patient had related surgical procedure: Related Therapy: Adjunct Instructor Chemistry Patient Number: [id number] Significant Clinical History: V72.31 ===== DISCLAIMER: The Pap smear is a screening test and not a diagnostic procedure. False negative and false positive results can and do occur for a number of reasons. Regular screening provides an aid in detecting treatable cervical abnormalities, but should not be used as the only means for detecting cervical dysplasia and carcinoma. ----- Signed Electronically signed IRAM KELLOGG 02/27/14 [id number] ----- 26 Performed at: RN - [facility] [address] [id number] [facility] Attendant: Norma Hilario MD, Phone: [phone] Organism 1 ! BETA HEMOLYTIC STREP NON A QUANTITY ! MANY 28 Borderline result. Homocysteine and Methylmalonic acid should be considered for values greater than 200 pg/mL and less that 400 pg/mL. 29 Note: Persistent reduction for 3 months or more in an eGFR <60 mL/min/1.73 m2 defines CKD. Patients with eGFR values >/=60 mL/min/1.73 m2 may also have CKD if evidence of persistent proteinuria is present. The original MDRD equation for estimated GFR is not valid for patients less than 18 years of age. Additional information may be found at www.kdoqi.org. 30 This high-risk HPV test detects thirteen high-risk types (16/18/31/33/35/39/45/51/52/56/58/59/68)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
--- OUTSIDE RECORDS SUMMARY | 2018-12-08 10:50 | XMS REPORT | Continuity of Care Document ---
:1980 External Reference #:[id number] Author Name Porfirio Reyes FNP Address [address] [place] [id number] Care Team Providers Name Role Phone Porfirio Reyes BUSINESS RULES ANALYST - Nurse Care Team Information Medicare Compliance Auditor [phone] Practitioner Problems Active Problems Provider Date Single [...] Jenshantell, Tablets *in place of 10 mg [facility] SPECIAL[facility] tablets, for sleep and headache prevention Lorazepam 1 tablet by mouth 21tabs F43.0 Eric, 12/01/2018 1mg Tablets up to three times Jenkaitlinferleigh, a day for anxiety [facility] SPECIALIST MDD#3 Reference #: [id number] Meclizine HCL take one tablet by 60tabs R42 Eric, 05/11/2018 25mg mouth four times a Jenniferleigh, Tablets day as needed for [facility] SPECIALIST vertigo Lactaid Fast Act 1 tab by mouth 90tabs R19.7 Bessie, 11/23/2017 three times a day MD Hood 9000Unit Tablets with meals Loestrin 20 (21) 1 tab by mouth 105tabs Z30.011 Eric, 11/09/2017 every daily Jenniferleigh, 1-20mg-mcg Tablets [facility] Loperamide HCL take one capsules 120tabs R19.7 [facility], 11/09/2017 2mg by mouth with each Jenniferleigh, Tablets meal MDD#4 *for [facility] SPECIALIST diarrhea History Medications Metronidazole one by mouth 14tabs Porfirio Reyes, 11/23/2018 - 500mg Tablets twice a day x [facility] SPECIALIST 12/01/2018 7 days Cephalexin Every 12 14tabs Unknown 10/12/2018 - 500mg Tablets Hours 11/16/2018 Phenazopyridine HCL 3 Times Daily 12tabs Unknown 10/12/2018 - 100mg 11/16/2018 Tablets Cephalexin Every 12 14caps Unknown 08/01/2018 - 500mg Capsules Hours 09/12/2018 Immunizations CPT Code Status Date Vaccine Lot # [id number] Given 09/11/2016 Tdap injection [id number] Vital Signs Date Vital Result Comment 12/05/2018 1:53pm BP Systolic Sitting Left Arm 115 mmHg BP Diastolic Sitting Left Arm 80 mmHg Heart Rate 80 /min Respiratory Rate 16 /min Height 60 inches 5'0" Weight 187.00 lb BMI (Body Mass Index) 36.5 kg/m2 BSA (Body Surface Area) 1.81 m2 Welch body weight in kilograms 45 kg 12/01/2018 11:21am BP Systolic Sitting Left Arm 130 mmHg BP Diastolic Sitting Left Arm 90 mmHg Body Temperature 97.8 F Heart Rate 100 /min Respiratory Rate 18 /min Height 60 inches 5'0" Weight 188.00 lb BMI (Body Mass Index) 36.7 kg/m2 BSA (Body Surface Area) 1.82 m2 Welch body weight in kilograms 45 kg Results Test Date Facility Test Result H/L Range Note Affirm 11/16/[address] [facility] [address] Trichomonas Negative [Negative] 1 Vaginitis Panel [address] vaginalis [place], [place] [id number] [phone] Gardnerella vaginalis POSITIVE Abnormal [Negative] Ambreen species Negative [Negative] 2 Urine Culture 11/16/[address] [facility] [address] Urine Culture URETHRAL GAMAL [address] [place] [address] [phone] Quantity < 10,000 CFU/mL Ua RFX Micro & Culture 11/16/[address] Urine Color YELLOW Yellow II [address] [place] [address] [phone] Urine Clarity CLEAR Clear Urine Glucose - Dipstick NEGATIVE mg/dL Negative Urine Bilirubin - Dipstick NEGATIVE Negative Urine Ketone NEGATIVE mg/dL Negative Urine Specific [place] 1.025 Normal 1.010-1.030 Urine Blood MODERATE Abnormal [...] Urine Mucus MODERATE None Seen Comprehensive 11/16/[address] Glucose 85 mg/dL Normal 74-106 Metabolic Panel [address] [place] [address] [phone] BUN 11 mg/dL Normal 7-18 Creatinine 0.7 [...] Phosphatase 52 U/L Normal 45-117 Glycohemoglobin 11/16/[address] [facility] [address] Glycohemoglobin 5.7 % Normal 4.2-6.[address] (A1c) [place], [place] [id number] [phone] eAG 117 mg/dL Urine HCG 10/12/2018 [facility] Urine HCG NEGATIVE Negative 6, 7 (Qualitative) [address] (Qualitative) [place], [place] [address] [phone] Source: URINE, CLEAN CAT <SEE NOTE> 8 Ua RFX Micro & Culture II 10/12/2018 [facility] Urine Color RED Yellow [address] [place] [address] [phone] Urine Clarity TURBID Clear Urine Glucose - Dipstick 100 mg/dL High Negative Urine Bilirubin - Dipstick NEGATIVE Negative Urine Ketone 15 mg/dL High Negative Urine Specific [place] 1.025 Normal 1.010-1.030 Urine Blood LARGE Abnormal [...] CAT <SEE NOTE> 9 Culture If 10/12/2018 [facility] Culture If CULTURE TO 10 Indicated Comment [address] Indicated Comment FOLLO <[place] [address] NOTE> [phone] Source: URINE, CLEAN CAT <SEE NOTE> 11 Urine Culture 10/12/2018 [facility] Urine ESCHERICHIA COLI Abnormal [address] Culture [place], [place] [address] [phone] Quantity > 100,000 CFU/mL 13 Ast-GN67 10/12/2018 [facility] Nitrofurantoin [address] [place] [address] [phone] Trimethoprim/Sulfamethoxazole <=20 Susceptible Ampicillin 8 Susceptible Cefazolin [...] Ua Blood 1+ High Negative Ua Specific [place] 1.030 1.010-1.030 Ua Ketones - Negative Ua Bilirubin - Negative Ua Glucose - Negative Laboratory test 08/01/2018 [facility] Urine HCG NEGATIVE Negative 14, finding [address] (Qualitative) 15 [place] [address] [phone] Amorphous 08/01/2018 N2N/CCD Import Amorphous Moderate Negative [...] Yellow Yellow determination determination Urine Culture 08/01/2018 [facility] Urine Culture URETHRAL [address] [place] [address] [phone] Quantity < 10,000 CFU/mL Ua RFX Micro & Culture 08/01/2018 [facility] Urine Color YELLOW Yellow II [address] [place] [address] [phone] Urine Clarity CLEAR Clear Urine Glucose - Dipstick NEGATIVE mg/dL Negative Urine Bilirubin - Dipstick NEGATIVE Negative Urine Ketone NEGATIVE mg/dL Negative Urine Specific [place] >=1.030 Normal 1.010-1.030 Urine Blood MODERATE Abnormal [...] for more aggressive treatment of glycemia. The [place] [employer] recommends that a primary goal [...] Eric, F43.0 Acute stress 2:15p Kevin Monroy, ty [facility] SPECIALIST Office Visit 12/01/2018 Family Medicine Eric, F43.0 Acute stress 11:30a Kevin Monroy, ty [facility] SPECIALIST Office Visit 11/16/2018 Family Medicine Eric, Z00.01 Encounter for 9:30a Kevin Monroy general adult [facility] medical exam w abnormal findings M20.12 Hallux valgus (acquired), left foot R35.0 Frequency of micturition N83.292 Other ovarian cyst, left side R73.9 Hyperglycemia, unspecified E66.9 Obesity, unspecified Office Visit 09/12/2018 Family Eric, N83.202 Unspecified 8:45a Medicine [place] DEEPA Monroy ovarian cyst, RD left side Assessments Date Code Description Provider 12/05/2018 F43.0 Acute stress reaction Porfirio Reyes FNP 12/01/2018 F43.0 Acute stress reaction Porfirio Reyes, [facility] SPECIALIST 11/16/2018 Z00.01 Encounter for general adult medical Porfirio Reyes FNP examination with abnormal findings 11/16/2018 M20.12 Hallux valgus (acquired), left foot ClPorfirio perez, DEEPA 11/16/2018 R35.0 Frequency of micturition Porfirio Reyes FNP 11/16/2018 N83.292 Other ovarian cyst, left side Clchris, Porfirio, [facility] SPECIALIST 11/16/2018 R73.9 Hyperglycemia, unspecified Clchris, Porfirio, [facility] SPECIALIST 11/16/2018 E66.9 Obesity, unspecified Clchris, Porfirio, [facility] SPECIALIST 09/12/2018 N83.202 Unspecified ovarian cyst, left side ClPorfirio perez FNP Plan of Treatment 12/05/2018 - Porfirio Reyes FNPF43.0 Acute stress reactionComments: Wonderfully improved now that you are getting sleepContinue Amitriptyline 25 mgContinue PRN Lorazepam Functional Status Description No Information Available Mental Status Description No Information Available Referrals Refer to Dr Reason for Referral Status Appt Date Jessica Briceno MD LT sided pelvic pain since early August - Sent Recent MRI shows 4.4 cm left dermoid cyst. [address] [facility] [address] [place] [address] [phone] Mika Weinstein LT foot pain Scheduled 12/05/2018 [address] [place] [address] [phone]
[2018-12-08 11:00] VITALS: BP 128/81
--- NOTE | 2018-12-08 11:37 | UC ---
Throat Pain/Nasal Dereck HPI - HPI Summary HPI Summary: Pt presents with c/o sudden onset of ST, fever, chills, body aches and fatigue X 2 days. Denies cough - History of Current Complaint Chief Complaint: UCRespiratory Stated Complaint: ST,BODY ACHES Time Seen by Provider: 12/08/18 11:09 Hx Obtained From: Patient Hx Last Menstrual Period: 11/24/18 ?: No Onset/Duration: Sudden Onset, Lasting Days, Still Present Severity: Moderate Pain Intensity: 8 Cough: None Associated Signs & Symptoms: Positive: Dysphagia - Epiglottits Risk Factors Epiglottis Risk Factors: Sudden Onset - Allergies/Home Medications Allergies/Adverse Reactions: Allergies Allergy/AdvReac Type Severity Reaction Status Date / Time codeine Allergy Unknown Hallucinati Verified 12/08/18 10:51 ons Home Medications: Home Medications Amitriptyline TAB* [Elavil TAB*] 25 mg PO BEDTIME 12/08/18 [History Confirmed ] Ibuprofen TAB* [Advil TAB*] 200 mg PO Q6H PRN 12/08/18 [History Confirmed ] Norethindr/Eth Estradiol(Nf) [Lo Loestrin Fe (NF)] 1 tab PO DAILY 12/08/18 [ History Confirmed 12/08/18] PMH/Surg Hx/FS Hx/Imm Hx Previously Healthy: Yes - Surgical History Surgical History: Yes Surgery Procedure, Year, and Place: choley - Family History Known Family History: Positive: Hypertension - Social History Occupation: Employed Full-time Lives: With Family Alcohol Use: None Substance Use Type: None Smoking Status (MU): Never Smoked Tobacco Have You Smoked in the Last Year: No - Immunization History Vaccination Up to Date: No Review of Systems All Other Systems Reviewed And Are Negative: Yes Constitutional: Positive: Fever, Chills, Fatigue Skin: Positive: Negative Eyes: Positive: Negative ENT: Positive: Sore Throat Respiratory: Positive: Negative Cardiovascular: Positive: Negative Gastrointestinal: Positive: Negative Genitourinary: Positive: Negative Motor: Positive: Negative Neurovascular: Positive: Negative Musculoskeletal: Positive: Myalgia Neurological: Positive: Negative Psychological: Positive: Negative Is Patient Immunocompromised?: No Physical Exam Triage Information Reviewed: Yes Appearance: Ill-Appearing Vital Signs: Initial Vital Signs Temp 98.3 F 12/08/18 10:53 Pulse 92 12/08/18 10:53 Resp 18 12/08/18 10:53 BP 128/81 12/08/18 10:53 Pulse Ox 98 12/08/18 10:53 Vital Signs Reviewed: Yes Eye Exam: Normal ENT: Positive: Pharyngeal erythema Dental Exam: Normal Neck exam: Normal Respiratory Exam: Normal Cardiovascular Exam: Normal Musculoskeletal Exam: Normal Neurological Exam: Normal Psychological Exam: Normal Skin Exam: Normal Throat Pain/Nasal Course/Dx - Course Course Of Treatment: Rapid strep negative - Differential Dx/Diagnosis Differential Diagnosis/HQI/PQRI: Mononucleosis, Pharyngitis, Tonsillitis Provider Diagnosis: Sore throat Discharge - Sign-Out/Discharge Documenting (check all that apply): Patient Departure All imaging exams completed and their final reports reviewed: No Studies - Discharge Plan Condition: Stable Disposition: HOME Prescriptions: Penicillin VK 500 MG TAB(NF) [Penicillin VK 500 mg Tab] 500 mg PO Q8H #30 tab Patient Education Materials: Pharyngitis (ED) Referrals: Nina Reyes NP [Primary Care Provider] - If Needed - Billing Disposition and Condition Condition: STABLE Disposition: Home
== END 2018-12-08 11:54 | disposition home or self-care (01) ==
LOC: UCCORT 09:25
DX: J02.9 Acute pharyngitis, unspecified (principal)
CPT/HCPCS: 87651; 99212; G0463